=== PATIENT | male | born 1980 | race Caucasian/White ===

== ENCOUNTER 2016-10-24 20:37 | Emergency (ER) | payer OTHER ==
[2016-10-24 20:40] VITALS: BP 126/81; TEMP 98.4; BMI 27.3
[2016-10-24] MEDS ORDERED: TORADOL IM STA (21:00)
[2016-10-24] MEDS ORDERED: FLEXERIL PO STA (21:00)
--- NOTE | 2016-10-24 21:08 | ED.PDOC ---
General ED Provider: Dr. NAIDA SIMON Chief Complaint: Neck Pain Non-Injury Stated Complaint: Pateint states that while he was wrestling his girl friends dog he noticed that his neck bacame stiff afterwards and painful on the left side. Time Seen by Physician: 21:06 Mode of Arrival: Walk-In Information Source: Patient Exam Limitations: No limitations Nursing and Triage Documentation Reviewed and Agree: Yes Musculoskeletal Complaint Exam - Neck Pain Complaint/Exam Mechanism of Injury: Reports: Trauma Onset/Duration: 3 hours ago Symptoms Are: Still present Timing: Constant Initial Severity: Moderate Current Severity: Severe Location: Reports: Discrete Character: Reports: Dull, Aching, Throbbing Aggravating: Reports: Position, Movement Alleviating: Reports: None Associated Signs and Symptoms: Reports: Nuchal rigidity. Denies: Headache, Paresthesia Related History: Denies: Similar episode, Occupational injury, Previous neck injury Meningitis Risk Factors: Reports: None Cervical Spine Injury Risk Factors: Denies: Post-Midline CS tender, Evidence of intoxication, Altered LOC, Focal neuro deficit, Distracting injuries Carotid Bruit Present: No Pain on Passive Flexion: No Positive Kernig's Sign: No ROM Limited In: Present: Flexion, Extension, Left, Side bending Pain Located at: left neck Tenderness: Present: Paraspinal Radiates to: Present: Left arm Focal Weakness: Present: None Focal Sensory Loss: Reports: None Nexus Low Risk Criteria: No post-midline CS tender, No evidence of intoxicat., No Altered LOC, No focal neuro deficit, No distracting injuries Neck Picture: 1 - pain and tenderness to palpation Differential Diagnoses: Sprain, Strain, Torticollis, Trauma Review of Systems - Review Of Systems Constitutional: Reports: No symptoms Musculoskeletal: Reports: Muscle stiffness, Neck pain All Other Systems: Reviewed and Negative Past Medical History - Past Medical History Endocrine: Reports: None Cardiovascular: Reports: None Respiratory: Reports: None Hematological: Reports: None Gastrointestinal: Reports: GERD Genitourinary: Reports: None Neuro/Psych: Reports: Migraine, Anxiety, Depression, Bipolar Disorder, Schizophrenia Musculoskeletal: Reports: None Cancer: Reports: None - Surgical History General Surgical History: Reports: Orthopedic (left middle finger and tendon repair. ), Unknown - Family History Family History: Reports: Unknown - Social History Smoking Status: Current every day smoker, Heavy tobacco smoker Hx Substance Use: Yes (MARIJUANA) Alcohol Screening: Occasionally Physical Exam - Physical Exam Appearance: Ill-appearing Pain Distress: Moderate Eyes: NAVEED, EOMI, Conjunctiva clear ENT: Ears normal, Nose normal, Oropharynx normal Neck: Supple Cardiovascular: RRR, Pulses normal, No rub, No murmur, Tachycardia GI/: Soft, Nontender, No masses, Bowel sounds normal, No Organomegaly Musculoskeletal: Limited ROM (left neck ) Skin: Warm, Dry, Normal color Neurological: Sensation intact, Motor intact, Reflexes intact, Cranial nerves intact, Alert, Oriented Psychiatric: Affect appropriate, Mood appropriate Critical Care Note - Critical Care Note Total Time (mins): 0 Course - Course Orders, Labs, Meds: Orders Category Date Time Status Cyclobenzaprine HCl [Flexeril] MEDS 10/24/16 21:00 Discontinued 10 mg PO ONCE STA Ketorolac Tromethamine [Toradol] MEDS 10/24/16 21:00 Discontinued 60 mg IM ONCE STA Medications Discontinued Medications Generic Name Dose Route Start Last Admin Trade Name Freq PRN Reason Stop Dose Admin Cyclobenzaprine HCl 10 mg 10/24/16 21:00 10/24/16 21:08 Flexeril PO 10/24/16 21:01 10 mg ONCE STA Administration Ketorolac Tromethamine 60 mg 10/24/16 21:00 10/24/16 21:08 Toradol IM 10/24/16 21:01 60 mg ONCE STA Administration Vital Signs: Temp Pulse Resp BP Pulse Ox 10/24/16 20:37 98.4 F 105 H 18 126/81 95 Departure - Departure Time of Disposition: 21:17 Disposition: HOME SELF-CARE Discharge Problem: Neck pain Instructions: Cervical Sprain (ED) Condition: Stable Pt referred to PMD for follow-up: Yes Additional Instructions: Alternate ICE and Heat to the area Take pain medications as prescribed Follow up with PCP in 3 days Prescriptions: Cyclobenzaprine HCl [Flexeril] 5 mg PO TID PRN #14 tablet PRN Reason: Spasms Ibuprofen [Motrin] 600 mg PO Q6H PRN #30 tablet PRN Reason: Analgesia Allergies/Adverse Reactions: Allergies No Known Drug Allergies Adverse Reaction (Verified 10/24/16 20:40) Home Medications: Ambulatory Orders Divalproex Sodium [Depakote] 500 mg PO BID 06/16/16 Guanfacine HCl [Guanfacine HCl ER] 2 mg PO BID 06/16/16 Buspirone HCl 10 mg PO BID 06/30/16 Ibuprofen [Advil] 200 mg PO Q2H PRN 06/30/16 Ranitidine HCl 300 mg PO BID 06/30/16 Cyclobenzaprine HCl [Flexeril] 5 mg PO TID PRN #14 tablet 10/24/16 Ibuprofen [Motrin] 600 mg PO Q6H PRN #30 tablet 10/24/16 Disposition Discussed With: Patient
== END 2016-10-24 21:38 | disposition home or self-care (01) ==
LOC: ED 20:37
DX: M54.2 Cervicalgia (principal)
CPT/HCPCS: 96372; 99282

== ENCOUNTER 2017-07-18 22:04 | Emergency (ER) ==
[2017-07-18 22:18] VITALS: BP 130/87; TEMP 97.7; BMI 25.1
--- NOTE | 2017-07-18 22:41 | DI ---
EXAM: Right toes, three views, 07/18/2017 HISTORY: Trauma COMPARISON: None. FINDINGS / IMPRESSION: Two sesamoid bones are present at the interphalangeal joint of the great toe. These appear chronic. No definitive fracture identified. Tiny cortical irregularity at the tuft of the distal phalanx may r epresent degenerative change versus osteophyte. No acute fracture or dislocation identified.
--- NOTE | 2017-07-18 23:04 | ED.PDOC ---
General ED Provider: Dr. CALI IBARRA-ER Chief Complaint: Foot Pain/Injury Stated Complaint: i dropped something on my toe Time Seen by Physician: 22:10 Mode of Arrival: Walk-In Information Source: Patient Exam Limitations: No limitations Nursing and Triage Documentation Reviewed and Agree: Yes Musculoskeletal Complaint Exam - Ankle/Foot Complaint/Exam Location of Injury: Reports: Right, Toe #1 Mechanism of Injury: Reports: Trauma Onset/Duration: 24 hrs Symptoms Are: Reports: Still present Onset of Pain: Reports: Immediate Initial Severity: Mild Current Severity: Mild Location: Reports: Diffuse Character: Reports: Dull, Aching Aggravating: Reports: Movement, Weight bearing Able to Bear Weight: No Associated Signs and Symptoms: Reports: Swelling, Bruising Related History: Reports: Similar episode Related Surgical History: Reports: None Lower Extremity Findings: Present: Swelling, Ecchymosis, Tenderness, Limited range of motion Achilles Tendon Abnormality: No Tenderness: Present: Digits Limited Range of Motion: Present: Inversion Differential Diagnosis: Contusion, Closed Fracture Review of Systems - Review Of Systems Constitutional: Reports: No symptoms Eyes: Reports: No symptoms Ears, Nose, Mouth, Throat: Reports: No symptoms Respiratory: Reports: No symptoms Cardiac: Reports: No symptoms GI: Reports: No symptoms : Reports: No symptoms Musculoskeletal: Reports: Joint swelling Skin: Reports: No symptoms Neurological: Reports: No symptoms Endocrine: Reports: No symptoms Hematologic/Lymphatic: Reports: No symptoms All Other Systems: Reviewed and Negative Past Medical History - Past Medical History Previously Healthy: Yes Endocrine: Reports: None Cardiovascular: Reports: None Respiratory: Reports: None Hematological: Reports: None Gastrointestinal: Reports: GERD Genitourinary: Reports: None Neuro/Psych: Reports: Migraine, Anxiety, Depression, Bipolar Disorder, Schizophrenia Musculoskeletal: Reports: None Cancer: Reports: None - Surgical History General Surgical History: Reports: Orthopedic (left middle finger and tendon repair. ), Unknown - Family History Family History: Reports: Unknown - Social History Smoking Status: Current every day smoker, Heavy tobacco smoker Hx Substance Use: Yes (MARIJUANA) Alcohol Screening: Occasionally - Immunizations Tetanus Shot up to Date: Yes Physical Exam - Physical Exam Appearance: Well-appearing, No pain distress, Well-nourished Pain Distress: Mild Eyes: NAVEED, EOMI, Conjunctiva clear ENT: Ears normal, Nose normal, Oropharynx normal Neck: Supple Respiratory: Airway patent, Breath sounds clear, Breath sounds equal, Respirations nonlabored Cardiovascular: RRR, Pulses normal, No rub, No murmur GI/: Soft Musculoskeletal: Normal strength Skin: Warm Neurological: Sensation intact Psychiatric: Affect appropriate Interpretation - Radiology Interpretation Radiology Interpretation By: Radiologist Radiology Results: Negative Critical Care Note - Critical Care Note Total Time (mins): 0 Course - Course Orders, Labs, Meds: Orders Category Date Time Status TOE(S), RIGHT MIN 2V Stat RADS 07/18/17 22:08 Completed Vital Signs: Temp Pulse Resp BP Pulse Ox 07/18/17 22:05 97.7 F 84 18 130/87 98 Departure - Departure Time of Disposition: 23:03 Disposition: HOME SELF-CARE Discharge Problem: Contusion, toe Qualifiers: Encounter type: initial encounter Toe: great toe Damage to nail status: without damage Laterality: right Qualified Code(s): S90.111A - Contusion of right great toe without damage to nail, initial encounter Instructions: Contusion in Adults (ED) Condition: Good Pt referred to PMD for follow-up: Yes Additional Instructions: motrin, ice--return prn Allergies/Adverse Reactions: Allergies No Known Drug Allergies Adverse Reaction (Verified 07/18/17 22:14) Home Medications: Ambulatory Orders Divalproex Sodium [Depakote] 500 mg PO BID 06/16/16 Guanfacine HCl [Guanfacine HCl ER] 2 mg PO BID 06/16/16 Buspirone HCl 10 mg PO BID 06/30/16 Ranitidine HCl 300 mg PO BID 06/30/16 Ibuprofen [Motrin] 600 mg PO Q6H PRN #30 tablet 10/24/16 Disposition Discussed With: Patient
== END 2017-07-18 23:00 | disposition home or self-care (01) ==
LOC: ED 22:04
DX: S90.111A Contusion of right great toe without damage to nail, initial encounter (principal); W20.8XXA Other cause of strike by thrown, projected or falling object, initial encounter; F17.210 Nicotine dependence, cigarettes, uncomplicated
CPT/HCPCS: 99282

== ENCOUNTER 2017-08-13 16:17 | Outpatient (CLI) ==
[2017-08-13 16:24] LABS: BASOPHILS # (AUTO) 0.1 K/uL (0-0.2); BASOPHILS % (AUTO) 1.2 % (0.0-3.0); EOSINOPHILS # (AUTO) 0.4 K/ul (0.0-0.7); EOSINOPHILS % (AUTO) 5.8 % (0.0-7.0); HEMATOCRIT 44.3 % (42.0-52.0); HEMOGLOBIN 15.3 g/dl (14.0-18.0); IMMATURE GRANULOCYTE % (AUTO) 0.2 % (0.0-5.0); LYMPHOCYTES # (AUTO) 2.3 K/uL (0.60-3.4); LYMPHOCYTES % (AUTO) 35.7 (10.0-50.0); MEAN CORPUSCULAR HEMOGLOBIN 29.3 pg (27.0-31.0); MEAN CORPUSCULAR HGB CONC 34.5 (31.8-35.4); MEAN CORPUSCULAR VOLUME 84.9 fl (80.0-94.0); MONOCYTES # (AUTO) 0.5 K/uL (0.4-2.0); MONOCYTES % (AUTO) 8.4 (0-10); NEUTROPHILS # (AUTO) 3.1 K/ul (2.0-6.9); NEUTROPHILS % (AUTO) 48.7; PLATELET COUNT 201 10^3/uL (140-440); RED BLOOD COUNT 5.22 10^6/ul (4.70-6.10); WHITE BLOOD COUNT 6.42 K/ul (4.2-10.2)
[2017-08-13 17:02] LABS: ALBUMIN 3.9 g/dL (3.4-5.0); ALBUMIN/GLOBULIN RATIO 1.22; BILIRUBIN,TOTAL 0.32 mg/dL (0.00-1.20); BUN/CREATININE RATIO 9.37; CALCIUM 9.2 mg/dL (8.2-10.2); CREATININE 0.96 mg/dL (0.60-1.10); TOTAL PROTEIN 7.1 g/dL (6.4-8.2)
== END 2017-08-13 16:18 | disposition home or self-care (01) ==
LOC: LAB 16:17
PROVIDERS: ATTEND Emergency Medicine
DX: F33.1 Major depressive disorder, recurrent, moderate (principal); F20.9 Schizophrenia, unspecified
CPT/HCPCS: 36415; 80053; 84443; 85025

== ENCOUNTER 2018-01-01 13:49 | Outpatient (CLI) | payer OTHER ==
--- NOTE | 2018-01-01 15:50 | DI ---
EXAM: Radiographs, lumbar spine HISTORY: Low back pain. COMPARISON: None available. TECHNIQUE: Three views. FINDINGS: Moderate wedging deformity of L1 noted which demonstrates smooth margins. Vertebral body heights are otherwise maintained. Alignment is normal. Disc heights are maintained. Sacral arcuate lines are intact. No localized soft tissue abnormality detected. IMPRESSION: Moderate wedging deformity of L1 which may be old. Correlate with MRI if further evaluation is maxine kim
== END 2018-01-01 13:50 | disposition home or self-care (01) ==
LOC: RAD 13:49
PROVIDERS: ATTEND Emergency Medicine
DX: M54.5 Low back pain (principal); G89.29 Other chronic pain

== ENCOUNTER 2018-05-15 10:05 | Outpatient (CLI) ==
--- NOTE | 2018-05-16 05:01 | MRI ---
EXAM: Lumbar spine MRI without contrast. HISTORY: Lumbar spondylosis without myelopathy or radiculopathy. COMPARISON: Lumbar spine radiographs 01/01/2018. TECHNIQUE: Multiplanar, multisequence MR images were acquired lumbar spine without contrast. FINDINGS: Conus medullaris ends at T12-L1 and has normal morphology and signal intensity. There is minor acute kyphosis at the thoracolumbar junction due to a moderate chronic anterior wedge compressi on deformity of L1 with 3 mm retropulsion of the L1 posterior superior endplate and T12-L1 interverte bral disc without spinal stenosis. The remaining lumbar vertebra are normal in height and intrinsic bone marrow signal. There is minor lumbar ventral spondylosis. At L5-S1, there is mild disc space n arrowing and disc desiccation. The partially visualized liver, spleen and kidneys are unremarkable. There are no paravertebral mass es. T12-L1: There is moderate chronic anterior wedging of L1 with 3 mm retropulsion which effaces the ve ntral thecal sac without spinal stenosis. Neural foramina are patent. L1-2: The intervertebral disc is normal. L2-3: The intervertebral disc is normal. L3-4: The intervertebral disc is normal. There is a small left facet effusion. L4-5: There is a mild disc bulge with a right foraminal annular fissure. This narrows the inferior neural foramina bilaterally. Minor bilateral facet arthropathy is present and there is mild left and mild to moderate right neural foraminal stenosis. There is no central canal stenosis. L5-S1: There is a minor disc bulge with marginal osteophytes that is asymmetric to the left where it narrows the inferior left neural foramen. There is a small broad-based central and right paracentra l disc protrusion that minimally effaces the right anterior subarachnoid space and encroaches on the anteromedial right S1 nerve. Minor bilateral facet arthropathy is present. There is mild left neura l foraminal stenosis. IMPRESSION: 1. Moderate chronic anterior wedge compression deformity L1. 2. Small broad-based central/right paracentral disc protrusion L5-S1 which encroaches on the right S 1 nerve.
== END 2018-05-15 10:06 | disposition home or self-care (01) ==
LOC: RAD 10:05
PROVIDERS: ATTEND Emergency Medicine
DX: M47.816 Spondylosis without myelopathy or radiculopathy, lumbar region (principal); S32.000D Wedge compression fracture of unspecified lumbar vertebra, subsequent encounter for fracture with routine healing

== ENCOUNTER 2019-06-03 01:54 | Outpatient (CLI) | payer OTHER ==
[2019-06-03 02:16] VITALS: BMI 24.3
== END 2019-06-03 02:05 | disposition critical access hospital (66) ==
LOC: AMBL 01:54
PROVIDERS: ATTEND Family Medicine
DX: S01.81XA Laceration without foreign body of other part of head, initial encounter (principal); S09.90XA Unspecified injury of head, initial encounter; Y04.2XXA Assault by strike against or bumped into by another person, initial encounter

== ENCOUNTER 2019-06-03 02:10 | Emergency (ER) ==
[2019-06-03 02:16] VITALS: BP 126/85; TEMP 97.8; BMI 24.3
[2019-06-03] MEDS ORDERED: LIDOCAINE HCL 1% SDV SUBCUT STA (02:24)
[2019-06-03] MEDS ORDERED: TENIVAC IM ONE (02:24)
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
== END 2019-06-03 03:22 | disposition home or self-care (01) ==
LOC: ED 02:10
DX: S01.81XA Laceration without foreign body of other part of head, initial encounter (principal); Y04.2XXA Assault by strike against or bumped into by another person, initial encounter; F17.210 Nicotine dependence, cigarettes, uncomplicated
CPT/HCPCS: 90471; 90714; 99282